=== PATIENT | male | born 1990 | race African-American/Black ===

== ENCOUNTER → 2016-06-17 | Outpatient (CLI) | payer BC ==
--- NOTE | 2016-06-17 16:21 | KCIC ---
PROCEDURE Two-view chest HISTORY Pneumonia of left lung followup COMPARISON None none FINDINGS PA view of the chest and two lateral views of the chest are submitted. There is mild opacity along the left heart border although may be due to component of epicardial fat. Otherwise no focal infiltrate is identified. There is perihilar bronchial wall thickening. There is no dependent pleural fluid or pneumothorax. Heart size is considered within normal limits. IMPRESSION There is mild opacity along the left heart border although may be due to epicardial fat. No other infiltrate is identified. There is perihilar bronchial wall thickening. Electronically signed by: Nelson Matamoros MD (Jun 17, 2016 16:20:16)
== END | disposition home or self-care (01) ==
LOC: KCIC 14:14
PROVIDERS: ATTEND Family Medicine
DX: J18.8 Other pneumonia, unspecified organism (principal)
CPT/HCPCS: 71020

== ENCOUNTER → 2016-09-09 | Outpatient (CLI) | payer BC ==
--- NOTE | 2016-09-09 10:55 | KCIC ---
CT thorax without contrast Indication: Chronic cough. Axial imaging through the chest was performed without contrast. PQRS STATEMENT One or more of the following individualized dose reduction techniques were utilized for this study: 1.Automated exposure control. 2.Adjustment of the mA and/orkVaccording to patient size. 3.Use of iterative reconstruction technique. No prior CT studies are available for comparison. The right axilla is unremarkable. There is a prominent lymph node in the left axilla measuring 3.2 by 1.5 centimeters. Minimal tissue in the anterior mediastinum is seen,likely residual thymic tissue. No definite hilar or mediastinal lymphadenopathy is identified. No pericardial or pleural fluid is identified. The central airways are unremarkable. The pulmonary parenchyma is clear. No nodules, infiltrates or masses are detected. The upper abdomen is unremarkable. Impression: Enlarged left axillary lymph node, indeterminate. Otherwise the noncontrast CT chest is unremarkable. Electronically signed by: Davey Infante MD (Sep 09, 2016 10:54:11)
== END | disposition home or self-care (01) ==
LOC: KCIC CT 10:29
PROVIDERS: ATTEND Family Medicine
DX: R05 Cough (principal)
CPT/HCPCS: 71250

== ENCOUNTER → 2016-10-08 | Outpatient (CLI) | payer BC ==
--- NOTE | 2016-10-08 08:41 | KCIC ---
PROCEDURE Non vascular left extremity ultrasound HISTORY Enlarged left axillary node COMPARISON CT exam September 09, 2016 FINDINGS Sonographic images of the left axillary region are submitted. Corresponding with the CT findings, there is somewhat enlarged left axillary node up to 3.7 x 1.5 x 1.8 centimeters, normal sonographic architecture with definition of the central fatty hilum.. IMPRESSION There is nonspecific enlarged left axillary lymph node although preserved sonographic architecture. Electronically signed by: Nelson Matamoros MD (October 08, 2016 08:39:51)
== END | disposition home or self-care (01) ==
LOC: KCIC US 07:48
PROVIDERS: ATTEND Family Medicine
DX: R59.0 Localized enlarged lymph nodes (principal)
CPT/HCPCS: 76881

== ENCOUNTER 2021-06-17 09:42 | Emergency (ER) | payer BC ==
[~2021-06-17] VITALS: Ht 182.9 cm; Wt 128.1 kg
[2021-06-17] MEDS ORDERED: diphenhydrAMINE ORAL ELIXIR 12.5 MG/5 ML ML PO ONE (10:00)
[2021-06-17] MEDS ORDERED: predniSONE 20 MG TABLET PO ONE (10:00)
[2021-06-17] MEDS ORDERED: FAMOTIDINE 20 MG TABLET. PO ONE (10:00)
--- NOTE | 2021-06-17 10:01 | ED.ADGEN ---
General Adult EDM: Chief Complaint: ALLERGIC REACTION HPI: HPI: Patient is a 30-year-old male who arrives ambulatory to the emergency department reporting the development of shortness of air as well as rash which began ro ughly half hour prior to arrival. Patient took a supplement shortly before this and states he began noticing that he had some sensation that he was experiencing some difficulty breathing as well as the development of hives of his chest, abdominal wall and extremities. Patient states he has taken this supplement for quite some time however this is the only thing he can tie to the development of the symptoms. Patient states he does work out regularly and has been eating better in order to increase his fitness. As result she does go to the gymnasium and does come in contact with a variety of people however he is not aware of anyone who may have been sick. Patient further states that he is vaccinated. He denies any fevers or chest pain. He further denies any shortness of air prior to this development. He is awake, alert and nontoxic-appearing. Review of Systems: Review of Systems: Constitutional: Denies fever or chills. [] Eyes: Denies change in visual acuity. [] HENT: Denies nasal congestion or sore throat. [] Respiratory: Reports shortness of air. Denies cough. [] Cardiovascular: Denies chest pain or edema. [] GI: Denies abdominal pain, nausea, vomiting, bloody stools or diarrhea. [] : Denies dysuria. [] Musculoskeletal: Denies back pain or joint pain. [] Integument: Reports rash, itching. [] Neurologic: Denies headache, focal weakness or sensory changes. [] Endocrine: Denies polyuria or polydipsia. [] Lymphatic: Denies swollen glands. [] Psychiatric: Denies depression or anxiety. [] Current Medications: Current Medications Medications (Trade) Dose Ordered Sig/Ivonne Start Time Stop Time Status Last Admin Dose Admin Diphenhydramine HCl (Benadryl Oral Elixir) 50 mg 1X ONCE 06/17/21 10:00 06/17/21 10:03 DC 06/17/21 10:10 50 MG Famotidine (Pepcid) 40 mg 1X ONCE 06/17/21 10:00 06/17/21 10:03 DC 06/17/21 10:12 40 MG Prednisone (Prednisone) 60 mg 1X ONCE 06/17/21 10:00 06/17/21 10:03 DC 06/17/21 10:12 60 MG Sodium Chloride 1,000 ml @ 1,000 mls/hr 1X ONCE 06/17/21 10:30 06/17/21 11:29 06/17/21 10:38 1,000 MLS/HR Allergies: Allergies: Allergies Coded Allergies Type Severity Reaction Last Updated Verified No Known Drug Allergies 06/17/21 No Physical Exam: PE: Constitutional: Well developed, well nourished, no acute distress, non-toxic appearance. [] HENT: Normocephalic, atraumatic, bilateral external ears normal, oropharynx moist, no oral exudates, nose normal. [] Eyes: PERRLA, EOMI, conjunctiva normal, no discharge. [] Neck: Normal range of motion, no tenderness, supple, no stridor. [] Cardiovascular: Tachycardia. No murmur [] Lungs & Thorax: Bilateral breath sounds clear to auscultation [] Abdomen: Bowel sounds normal, soft, no tenderness, no masses, no pulsatile masses. [] Skin: Patient has an erythematous rash of his chest, abdominal wall as well as arms bilaterally. This rash is raised and does ezequiel to touch. It is dry and nontender upon palpation as well. This rash appears to be consistent with urticaria. There are no petechial or cellulitic features associated with his rash. sh. [] Back: No tenderness, no CVA tenderness. [] Extremities: No tenderness, no cyanosis, no clubbing, ROM intact, no edema. [] Neurologic: Alert and oriented X 3, normal motor function, normal sensory function, no focal deficits noted. [] Psychologic: Affect normal, judgement normal, mood normal. [] Current Patient Data: Labs: Laboratory Tests Test 06/17/21 10:13 06/17/21 10:35 SARS-CoV-2 Antigen (Rapid) Negative (NEGATIVE) White Blood Count 6.9 x10^3/uL (4.0-11.0) Red Blood Count 6.42 x10^6/uL (4.30-5.70) H Hemoglobin 18.3 g/dL (13.0-17.5) H Hematocrit 52.9 % (39.0-53.0) Mean Corpuscular Volume 82 fL (79-100) Mean Corpuscular Hemoglobin 29 pg (25-35) Mean Corpuscular Hemoglobin Concent 35 g/dL (31-37) Red Cell Distribution Width 12.7 % (11.5-14.5) Platelet Count 237 x10^3/uL (140-400) Neutrophils (%) (Auto) 49 % (31-73) Lymphocytes (%) (Auto) 43 % (24-48) Monocytes (%) (Auto) 8 % (0-9) Eosinophils (%) (Auto) 1 % (0-3) Basophils (%) (Auto) 0 % (0-3) Neutrophils # (Auto) 3.4 x10^3/uL (1.8-7.7) Lymphocytes # (Auto) 2.9 x10^3/uL (1.0-4.8) Monocytes # (Auto) 0.5 x10^3/uL (0.0-1.1) Eosinophils # (Auto) 0.0 x10^3/uL (0.0-0.7) Basophils # (Auto) 0.0 x10^3/uL (0.0-0.2) Sodium Level 135 mmol/L (136-145) L Potassium Level 3.8 mmol/L (3.5-5.1) Chloride Level 100 mmol/L (98-107) Carbon Dioxide Level 26 mmol/L (21-32) Anion Gap 9 (6-14) Blood Urea Nitrogen 19 mg/dL (8-26) Creatinine 1.2 mg/dL (0.7-1.3) Estimated GFR (Cockcroft-Gault) 87.2 BUN/Creatinine Ratio 16 (6-20) Glucose Level 121 mg/dL (70-99) H Calcium Level 9.0 mg/dL (8.5-10.1) Total Bilirubin 0.8 mg/dL (0.2-1.0) Aspartate Amino Transferase (AST) 25 U/L (15-37) Alanine Aminotransferase (ALT) 43 U/L (16-63) Alkaline Phosphatase 89 U/L (46-116) Troponin I High Sensitivity < 4 ng/L (4-75) L Total Protein 7.4 g/dL (6.4-8.2) Albumin 3.7 g/dL (3.4-5.0) Albumin/Globulin Ratio 1.0 (1.0-1.7) Laboratory Tests 06/17/21 10:35 Laboratory Tests 06/17/21 10:35 Vital Signs: Vital Signs Date Time Temp Pulse Resp B/P (MAP) Pulse Ox O2 Delivery O2 Flow Rate FiO2 06/17/21 09:45 98.2 14 138/79 (98) Room Air 98.2 EKG: EKG: [] Heart Score: C/O Chest Pain: No Risk Factors: Risk Factors: DM, Current or recent (<one month) smoker, HTN, HLP, family history of CAD, obesity. Risk Scores: Score 0 - 3: 2.5% MACE over next 6 weeks - Discharge Home Score 4 - 6: 20.3% MACE over next 6 weeks - Admit for Clinical Observation Score 7 - 10: 72.7% MACE over next 6 weeks - Early Invasive Strategies Radiology/Procedures: Radiology/Procedures: [][facility] [address] [place] [address] IMAGING REPORT Signed PATIENT: REMEDIOS CESPEDES ACCOUNT: [id number] : 1990 LOCATION: ER AGE: 30 SEX: M EXAM STATUS: REG ER ORD. PHYSICIAN: ISSA VEE DO REASON: Tachycardia, shortness of air PROCEDURE: CHEST AP ONLY XR CHEST 1V History: Tachycardia, shortness of air Comparison: 06/17/2016. Technique: Portable AP radiograph of the chest. Findings: The lungs are adequately inflated. No focal airspace consolidation, pleural effusion or pneumothorax. Cardiomediastinal silhouette and pulmonary vasculature are within normal limits. Osseous structures and soft tissues are unremarkable. Impression: 1. No acute cardiopulmonary process. Electronically signed by: Robert Amador MD (06/17/2021 10:46 AM) [id number] DICTATED and SIGNED BY: ROBERT AMADOR MD DATE: 06/17/21 [id number] 0 Course & Med Decision Making: Course & Med Decision Making Pertinent Labs and Imaging studies reviewed. (See chart for details) The patient remains awake, alert and in no acute distress. The patient has had intermittent bouts of tachycardia with his heart rate reaching as high as 150 bpm. Currently the patient's heart rate is 76 bpm. I did review the ingredients from his supplements and I do not see anything that would cause his heart rate to be accelerated. He is very steadfast in his claims that he is not utilizing any illicit substances that may contribute to the use of any substance that might contribute to tachycardia otherwise. Moreover I do believe the patient as he has no clinical manifestations of any illicit toxidrome otherwise. Patient does admit that he has not been drinking enough water and that is very evident as he does appear to have polycythemia. I advised that he drink more water over the next several days. Should he develop any progression of his symptoms or have medical concerns otherwise have advised that he return to the emergency department. The patient has otherwise been encouraged to avoid the supplements until he is completely recovered from this event and then exercise caution if he decides to utilize the supplements in the future. The patient understands and states he will take these measures under advisement. He is nontoxic-appearing and stable for discharge. Dragon Disclaimer: Claudine Disclaimer: This electronic medical record was generated, in whole or in part, using a voice recognition dictation system. Departure Departure Impression: Primary Impression: Allergic reaction Additional Impression: Tachycardia Disposition: HOME / SELF CARE / HOMELESS Condition: STABLE Referrals: JOSIANE PAGE MD (PCP) Patient Instructions: Allergies, Generic, Nonspecific Tachycardia Additional Instructions: Patient appears to have had an adverse reaction to an unknown source. It is very possible this may be related to supplements he is taking related to his fitness. Patient does have urticaria which is present. Despite this he is without shortness of air, nausea or a sensation that his throat is closing. I advised that he return to the emergency department should any of the symptoms develop. The patient is otherwise been encouraged to discontinue the symptoms and complete the steroid regimen that he has been prescribed and rest. I have also advised the patient to consider following up with his primary care physician for allergy testing should this happen again. Patient understands and has agreed to follow these instructions. He is nontoxic-appearing and stable for discharge. The patient's heart rate at discharge was 80 bpm. Scripts Prednisone (PREDNISONE) 50 Mg Tablet 1 TAB PO DAILY for 5 Days, #5 TAB Prov: ISSA VEE DO 06/17/21 Problem Qualifiers ISSA VEE DO Jun 17, 2021 10:01
[2021-06-17] MEDS ORDERED: IV NORMAL SALINE 1000ML BAG 1,000 ML IV ONE (10:30)
--- NOTE | 2021-06-17 10:48 | RAD ---
XR CHEST 1V History: Tachycardia, shortness of air Comparison: 06/17/2016. Technique: Portable AP radiograph of the chest. Findings: The lungs are adequately inflated. No focal airspace consolidation, pleural effusion or pneumothorax. Cardiomediastinal silhouette and pulmonary vasculature are within normal limits. Osseous structures and soft tissues are unremarkable. Impression: 1. No acute cardiopulmonary process. Electronically signed by: Robert Pike MD (06/17/2021 10:46 AM) [id number]
[2021-06-17 10:50] LABS: BASO % 0 % (0-3); EOS % 1 % (0-3); HEMATOCRIT 52.9 % (39.0-53.0); HEMOGLOBIN 18.3 g/dL (13.0-17.5); LYMPH # 2.9 x10^3/uL (1.0-4.8); LYMPH % 43 % (24-48); MEAN CORPUSCULAR HEMOGLOBIN 29 pg (25-35); MEAN CORPUSCULAR HGB CONC 35 g/dL (31-37); MEAN CORPUSCULAR VOLUME 82 fL (79-100); MONO # 0.5 x10^3/uL (0.0-1.1); MONO % 8 % (0-9); NEUT # 3.4 x10^3/uL (1.8-7.7); NEUT % 49 % (31-73); PLATELET COUNT 237 x10^3/uL (140-400); RED BLOOD COUNT 6.42 x10^6/uL (4.30-5.70); RED CELL DISTRIBUTION WIDTH 12.7 % (11.5-14.5); WHITE BLOOD COUNT 6.9 x10^3/uL (4.0-11.0)
[2021-06-17 10:52] VITALS: BP 129/73
[2021-06-17 11:04] LABS: CREATININE 1.2 mg/dL (0.7-1.3); GFR 87.2; POTASSIUM 3.8 mmol/L (3.5-5.1)
[2021-06-17 11:11] LABS: ALBUMIN 3.7 g/dL (3.4-5.0); TOTAL BILIRUBIN 0.8 mg/dL (0.2-1.0); TOTAL PROTEIN 7.4 g/dL (6.4-8.2)
[2021-06-17] MEDS ORDERED: PRED50TA PO (11:19)
[2021-06-17 11:27] LABS: BARBITURATES NEG (NEG); BENZODIAZEPINES NEG (NEG); CANNABINOIDS NEG (NEG); COCAINE NEG (NEG); METHADONE NEG (NEG); OPIATES NEG (NEG); PHENCYCLIDINE NEG (NEG)
[2021-06-17 11:28] LABS: AMPHETAMINE/METHAMPHETAMINE NEG (NEG)
== END 2021-06-17 11:46 | disposition home or self-care (01) ==
LOC: ER 09:42
DX: T78.40XA Allergy, unspecified, initial encounter (principal); R00.0 Tachycardia, unspecified; Z20.822 Contact with and (suspected) exposure to COVID-19; X58.XXXA Exposure to other specified factors, initial encounter
CPT/HCPCS: 36415; 71045; 80053; 80307; 84484; 85025; 87426; 96360; 99284; J7030; J7512; U0003; U0005